=== PATIENT | male | born 1980 | race Caucasian/White ===

== ENCOUNTER 2017-03-12 14:41 | Emergency (ER) | payer MEDICAID ==
[~2017-03-12] VITALS: Ht 188 cm; Wt 95.3 kg
[2017-03-12 15:39] VITALS: BP_SYST 119
--- NOTE | 2017-03-12 15:46 | NUR ---
bACK TO THE WAITING ROOM, AMBULATED WITH GOOD STEADY GAIT.
--- NOTE | 2017-03-12 16:09 | NUR ---
Patient to ER bed 5 to await MD evaluation.
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
--- NOTE | 2017-03-12 16:20 | NUR ---
Dr Valencia at bedside to evaluate patient.
--- NOTE | 2017-03-12 17:20 | NUR ---
Patient resting quietly in no acute distress.
[2017-03-12 18:10] VITALS: BP_SYST 121
--- NOTE | 2017-03-12 18:10 | NUR ---
Patient given written and verbal discharge instructions and verbalizes understanding. ER MD discussed with patient the results and treatment provided. Patient in stable condition. ID arm band removed. Rx of Flexeril, Ibuprofen given. Patient educated on pain management and to follow up with PMD. Pain Scale 2. Opportunity for questions provided and answered. Patient left ER ambulating with slow, steady gait in no acute distress.
== END 2017-03-12 18:10 | disposition home or self-care (01) ==
LOC: SED 14:41
DX: S16.1XXA Strain of muscle, fascia and tendon at neck level, initial encounter (principal); S93.401A Sprain of unspecified ligament of right ankle, initial encounter; V89.2XXA Person injured in unspecified motor-vehicle accident, traffic, initial encounter; Y93.89 Activity, other specified; Y92.410 Unspecified street and highway as the place of occurrence of the external cause; Y99.8 Other external cause status
CPT/HCPCS: 72050-TC; 99284

== ENCOUNTER 2020-10-15 09:26 | Emergency (ER) | payer MEDICAID ==
[~2020-10-15] VITALS: Ht 188 cm; Wt 99.8 kg
[2020-10-15 09:40] VITALS: BP_SYST 103
[2020-10-15] MEDS ORDERED: CEPH500C2 PO (10:52)
[2020-10-15] MEDS ORDERED: PRED50TA PO (10:52)
[2020-10-15] MEDS ORDERED: TRAM50TA PO (10:52)
[2020-10-15 11:05] VITALS: BP_SYST 103
== END 2020-10-15 11:06 | disposition home or self-care (01) ==
LOC: SED 09:26
DX: M19.031 Primary osteoarthritis, right wrist (principal); Z79.899 Other long term (current) drug therapy
CPT/HCPCS: 99283

== ENCOUNTER 2021-05-08 09:14 | Emergency (ER) | payer MEDICAID ==
[~2021-05-08] VITALS: Ht 185.4 cm; Wt 95.3 kg
[~2021-05-08 09:14] MED LIST: CEPH-548 PO; PRED50TA PO; TRAM50TA PO
[2021-05-08 09:15] VITALS: BP_SYST 148
--- NOTE | 2021-05-08 09:19 | NUR ---
BROUGHT BACK TO BED #4 AND REPORT GIVEN TO LUIS
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
--- NOTE | 2021-05-08 09:25 | NUR ---
ER DR. WARNER AT THE BEDSIDE EXAMINING PT
[2021-05-08] MEDS ORDERED: KETOROLAC TROMETHAMINE 60 MG/2 ML VIAL IM ONE (09:30)
--- NOTE | 2021-05-08 09:40 | NUR ---
LAB AT THE BEDSIDE FOR BLOOD DRAW
--- NOTE | 2021-05-08 09:48 | NUR ---
Patient transported to radiology via AMBULATION, accompanied by STAFF.
[2021-05-08 10:07] LABS: BASOPHILS % (AUTO) 0.5 % (0.0-2.0); EOSINOPHILS # (AUTO) 0.1 K/uL (0.0-0.4); EOSINOPHILS % (AUTO) 0.7 % (0.0-4.0); HEMATOCRIT 46.6 % (36-54); HEMOGLOBIN 15.7 g/dL (14.0-18.0); LYMPHOCYTES % (AUTO) 19.3 % (20.5-51.5); MEAN CORPUSCULAR HEMOGLOBIN 29 pg (27-31); MEAN CORPUSCULAR HGB CONC 34 % (32-36); MEAN CORPUSCULAR VOLUME 87 fL (79.0-98.0); MONOCYTES # (AUTO) 1.1 K/uL (0.0-1.0); MONOCYTES % (AUTO) 10.6 % (1.7-9.3); NEUTROPHILS # (AUTO) 7.1 K/uL (1.8-7.7); NEUTROPHILS % (AUTO) 68.9 % (40.0-70.0); PLATELET COUNT (AUTO) 243 K/uL (130-430); RED BLOOD CELL COUNT(AUTO) 5.36 MIL/uL (4.2-6.2); RED CELL DISTRIBUTION WIDTH 13.8 % (9.0-15.0); WHITE BLOOD COUNT (AUTO) 10.3 K/uL (4.8-10.8)
[2021-05-08 10:11] LABS: ANION GAP 11 (5-15); CALCIUM 8.3 mg/dL (8.4-11.0); CHLORIDE 105 mmol/L (98-107); CREATININE 0.87 mg/dL (0.55-1.30); GLUCOSE 90 mg/dL (70-99); SODIUM SERUM 139 mmol/L (136-145); UREA NITROGEN, BLOOD 20 mg/dL (8-21)
[2021-05-08 10:16] LABS: GFR AFRICAN AMERICAN 124 mL/min (>90)
[2021-05-08 10:24] LABS: ALANINE AMINOTRANSFERASE 27 U/L (12-78); ALBUMIN 3.7 g/dL (3.4-4.8); ASPARTATE AMINOTRANSFERASE 13 U/L (10-37); TOTAL BILIRUBIN 0.6 mg/dL (0.0-1.0); URIC ACID 4.9 mg/dL (2.4-7.0)
[2021-05-08 10:32] LABS: C-REACTIVE PROTEIN QUANT < 0.2 mg/dL (0-0.5)
[2021-05-08] MEDS ORDERED: IBUP-1971 PO (11:04)
[2021-05-08] MEDS ORDERED: HYDR-3917 PO (11:04)
--- NOTE | 2021-05-08 11:40 | NUR ---
SLING PROVIDED TO PT, FITTED AND PT REPORTS COMFORT
[2021-05-08 11:43] LABS: ERYTHROCYTE SEDIMENTATION RATE 5 MM/HR (0-15)
[2021-05-08 11:46] VITALS: BP_SYST 148
--- NOTE | 2021-05-08 11:46 | NUR ---
Patient given written and verbal discharge instructions and verbalizes understanding. ER MD discussed with patient the results and treatment provided. Patient in stable condition. ID arm band removed. Rx of IBUPROFEN AND NORCO given. Patient educated on pain management and to follow up with PMD. Pain Scale 0/10 Opportunity for questions provided and answered. Medication side effect fact sheet provided.
== END 2021-05-08 11:46 | disposition home or self-care (01) ==
LOC: SED 09:14
DX: M25.522 Pain in left elbow (principal); Z79.899 Other long term (current) drug therapy
CPT/HCPCS: 36415; 73080; 80053; 84550; 85025; 85651; 86140; 96372; 99284; J1885

== ENCOUNTER 2021-08-19 10:07 | Emergency (ER) | payer MEDICAID ==
[~2021-08-19] VITALS: Ht 185.4 cm; Wt 99.8 kg
[~2021-08-19 10:07] MED LIST changes: +HYDR-3917 PO; +IBUP-1971 PO
--- NOTE | 2021-08-19 10:18 | NUR ---
Patient to ER bed 7 to gown for evaluation. Side rails up. Report given to Serina CAVANAUGH.
[2021-08-19 10:19] VITALS: BP_SYST 123
--- NOTE | 2021-08-19 10:20 | NUR ---
Pt alert and oriented x 3 upon face to face assessment. Pt ambulatory to rm 7 using cane for balance. 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 Pending MD rios.
--- NOTE | 2021-08-19 10:23 | NUR ---
ER Dr. Perez at bedside examining patient.
--- NOTE | 2021-08-19 10:29 | NUR ---
Pt to radiology ambulatory with cane
[2021-08-19] MEDS ORDERED: KETOROLAC TROMETHAMINE 60 MG/2 ML VIAL IM ONE (10:30)
[2021-08-19] MEDS ORDERED: HYDR-3917 PO (11:05)
[2021-08-19] MEDS ORDERED: ONDA-8 TL (11:05)
[2021-08-19] MEDS ORDERED: CYCL10TA24 PO (11:05)
[2021-08-19] MEDS ORDERED: NAPR-688 PO (11:05)
--- NOTE | 2021-08-19 11:27 | NUR ---
Patient given written and verbal discharge instructions and verbalizes understanding. ER MD discussed with patient the results and treatment provided. Patient in stable condition. ID arm band removed. Rx of Flexeril, [place], Zofran and Naproxen given. Patient educated on pain management and to follow up with PMD. Pain improved. Opportunity for questions provided and answered. Medication side effect fact sheet provided.
== END 2021-08-19 11:29 | disposition home or self-care (01) ==
LOC: SED 10:07
DX: M54.50 Low back pain, unspecified (principal); Z79.899 Other long term (current) drug therapy
CPT/HCPCS: 72100; 96372; 99283; J1885

== ENCOUNTER 2021-09-25 09:52 | Emergency (ER) | payer MEDICAID ==
[~2021-09-25] VITALS: Ht 185.4 cm; Wt 99.8 kg
[~2021-09-25 09:52] MED LIST changes: +CYCL10TA24 PO; +NAPR-688 PO; +ONDA-8 TL
[2021-09-25 09:56] VITALS: BP_SYST 140
[2021-09-25] MEDS ORDERED: CEPH-548 PO (10:17)
[2021-09-25 10:20] VITALS: BP_SYST 140
[2021-09-25] MEDS ORDERED: NAPR-1172 PO (10:31)
== END 2021-09-25 10:41 | disposition home or self-care (01) ==
LOC: SED 09:52
DX: L03.012 Cellulitis of left finger (principal); R22.32 Localized swelling, mass and lump, left upper limb; Z79.899 Other long term (current) drug therapy
CPT/HCPCS: 99283

== ENCOUNTER 2021-12-24 08:19 | Emergency (ER) | payer MEDICAID ==
[~2021-12-24] VITALS: Ht 182.9 cm; Wt 95.3 kg
[~2021-12-24 08:19] MED LIST changes: +NAPR-1172 PO
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
[2021-12-24 08:25] VITALS: BP_SYST 140
[2021-12-24] MEDS ORDERED: LIDOCAINE 1% 10 MG/ML, 20 ML MDV INJ ONE (08:30)
--- NOTE | 2021-12-24 09:09 | NUR ---
Dr. Jin at bedside.
[2021-12-24 10:25] VITALS: BP_SYST 134
--- NOTE | 2021-12-24 11:00 | NUR ---
Patient educated on follow up care with PCP or at urgent care for evaluation of stitches.
--- NOTE | 2021-12-24 11:00 | NUR ---
Patient given written and verbal discharge instructions and verbalizes understanding. ER MD discussed with patient the results and treatment provided. Patient in stable condition. ID arm band removed. Patient educated on pain management and to follow up with PMD. Pain Scale . Opportunity for questions provided and answered. Medication side effect fact sheet provided.
== END 2021-12-24 11:00 | disposition home or self-care (01) ==
LOC: SED 08:19
DX: S61.411A Laceration without foreign body of right hand, initial encounter (principal); Z79.899 Other long term (current) drug therapy; W22.8XXA Striking against or struck by other objects, initial encounter; Y93.89 Activity, other specified; Y92.89 Other specified places as the place of occurrence of the external cause; Y99.8 Other external cause status
CPT/HCPCS: 99283; 73130; 12002; J2001